=== PATIENT | female | born 1935 ===

== ENCOUNTER 2020-03-09 09:30 | Day surgery (SDC) | payer MEDICARE ==
[~2020-03-09 09:30] MED LIST: ONDA4ODT MM; PANT20 PO
--- NOTE | 2020-03-09 11:00 | NUR ---
ARRIVAL UPON ARIVAL TO UNIT, PT TRANSFERS TO SURG BED WITHOUT DIFF. BANDAID ON LUQ CDI, NO BRUISING OR HARDNESS AROUND THIS AREA. PT C/O TENDERNESS. ALERT, ORIENTED. PLEASANT. DENIES SOB. VSS.
--- NOTE | 2020-03-09 13:05 | NUR ---
DISCHARGE PT HAS DONE WELL DURING RECOVERY. ALERT, EATING/DRINKING/VOIDING, VSS. STATES LUQ DISCOMFORT IS MUCH BETTER. BANDAID HAS NO DRAIANGE. NO BRUISING OR HARDNESS WITH GENTLE PALPATION. ESCORTED OUT TO SPOUSE VIA W/C.
== END 2020-03-09 13:05 | disposition home or self-care (01) ==
LOC: US 09:30 → SURS 11:00 → US 13:05
DX: K75.81 Nonalcoholic steatohepatitis (NASH) (principal); K74.0 Hepatic fibrosis
CPT/HCPCS: 47000; 76942